=== PATIENT | male | born 1970 | race Two or more races ===

== ENCOUNTER 2021-12-20 18:32 | Emergency (ER) | payer OTHER ==
[~2021-12-20] VITALS: Ht 162.6 cm; Wt 158.8 kg
[2021-12-20] MEDS ORDERED: EPINEPHrine HCL 1 MG/10 ML SYRG IV ONE (18:33)
[2021-12-20] MEDS ORDERED: SODIUM BICARBONATE 8.4 % INJ 50ML VIAL IV ONE (18:33)
[2021-12-20] MEDS ORDERED: EPINEPHrine HCL 1 MG/10 ML SYRG ONE (18:48)
[2021-12-20] MEDS ORDERED: SODIUM BICARBONATE 8.4% INJ 50ML SYRINGE ONE (18:53)
[2021-12-20 19:15] VITALS: BP 0/0
== END 2021-12-20 19:01 ==
LOC: ER 18:32 → EDBD 18:32 → ER 19:01
DX: I46.9 Cardiac arrest, cause unspecified (principal)
CPT/HCPCS: 31500; 92950; 99285; J0171